=== PATIENT | male | born 1990 | race Caucasian/White ===

== ENCOUNTER 2017-12-14 20:50 | Emergency (ER) | payer SELFPAY ==
[~2017-12-14] VITALS: Ht 167.6 cm; Wt 69.6 kg
[2017-12-14 21:37] VITALS: BP 133/89; PULSE 93; RESP 16; TEMP 98.5; O2SAT 98
[2017-12-14] MEDS ORDERED: BACT800T5 PO (22:39)
--- NOTE | 2017-12-14 22:39 | PD ---
HPI Chief Complaint: Skin Problem Time Seen by Provider: 22:37 Travel History International Travel<30 days: No Contact w/Intl Traveler<30days: No Traveled to known affect area: No History of Present Illness HPI Patient is a 27-year-old male presents emergency department for evaluation of an abscess on the lateral aspect of his right upper arm. Patient states is actually getting better but he had noticed that he had some streaking of redness going up his inner arm earlier in the week. He states it also had a small amount of drainage earlier this week. He states he thought it was getting better but when his significant other noticed it she wanted him to be seen for it. No fevers no abdominal pain no nausea vomiting no other symptoms. He is not an IV drug abuser and adamantly declines. No history of HIV or hepatitis or diabetes. Symptoms for the past few days, improving, associated signs symptoms as above, location as above per [facility] Past Medical History Medical History: Denies Significant Hx Past Surgical History Narrative Surgical Lt Tib Fib Social History Alcohol Use: Yes Tobacco Use: No Allergies-Medications (Allergen,Severity, Reaction): Coded Allergies: morphine (Verified Allergy, Severe, CHEST PAIN, 12/14/17) Reported Meds & Prescriptions Reported Meds & Active Scripts Active Bactrim DS (Sulfamethoxazole-Trimethoprim) 800-160 Mg Tab 1 Tab PO BID Review of Systems Except as stated in HPI: all other systems reviewed are Neg Physical Exam Narrative GENERAL: Well-nourished, well-developed patient. Appears well and nontoxic SKIN: Focused skin assessment warm/dry. There is approximately silver dollar sized area of erythema and abscess on the dorsal lateral aspect of the right upper arm. There is a small central head with granulation tissue. Small amount of induration but no fluctuance is felt. I do not see any streaking up his arm, the patient showed me pictures on his phone of where it was in the past and it seems to have resolved. No lymphadenopathy. HEAD: Normocephalic. EYES: No scleral icterus. No injection or drainage. NECK: Supple, trachea midline. No JVD or lymphadenopathy. CARDIOVASCULAR: Regular rate and rhythm without murmurs, gallops, or rubs. RESPIRATORY: Breath sounds equal bilaterally. No accessory muscle use. GASTROINTESTINAL: Abdomen soft, non-tender, nondistended. MUSCULOSKELETAL: No cyanosis, or edema. BACK: Nontender without obvious deformity. No CVA tenderness. Data Data Last Documented VS Vital Signs Date Time Temp Pulse Resp B/P (MAP) Pulse Ox O2 Delivery O2 Flow Rate FiO2 12/14/17 23:11 98.5 84 15 130/84 (99) 99 Orders Orders Sulfamet-Trimeth Ds 800-160 Mg (Bactrim (12/14/17 22:45) Ed Discharge Order (12/14/17 22:39) MDM Medical Decision Making Medical Screen Exam Complete: Yes Emergency Medical Condition: Yes Differential Diagnosis Abscess, cellulitis, sepsis unlikely. Narrative Course Patient room to the emergency department, appears to have uncomplicated cellulitis of the right upper extremity with an abscess that is already drained spontaneously per his history. His indications for antibiotic therapy, discussed expectant management and return to ED criteria. He is stable for discharge Diagnosis Primary Impression: Abscess of arm, right Additional Impression: Cellulitis of arm, right Med/Other Pt SpecificInfo: Prescription(s) given Scripts Sulfamethoxazole-Trimethoprim (Bactrim DS) 800-160 Mg Tab 1 TAB PO BID for Infection, #14 TAB 0 Refills Prov: Ezekiel Fleming MD 12/14/17 Disposition: 01 DISCHARGE HOME Condition: Stable Ezekiel Fleming MD Dec 14, 2017 22:39
[2017-12-14] MEDS ORDERED: SULFAMETHOXAZOLE-TRIMETHOPRIM DS 800-160 MG TAB PO ONE (22:45)
[2017-12-14 23:11] VITALS: BP 130/84; TEMP 98.5
== END 2017-12-14 23:17 | disposition home or self-care (01) ==
LOC: PHED 20:50
DX: L02.413 Cutaneous abscess of right upper limb (principal); L03.113 Cellulitis of right upper limb
CPT/HCPCS: 99283